=== PATIENT | male | born 1980 | race Caucasian/White ===

== ENCOUNTER 2024-10-06 09:35 | Emergency (ER) | payer OTHER, SELFPAY ==
[2024-10-06 09:48] VITALS: BP 132/58; PULSE 100; RESP 16; TEMP 37.7; O2SAT 99
--- NOTE | 2024-10-06 10:08 | ED.URI ---
HPI - URI/Sore Throat General Chief Complaint: Upper Respiratory Infection Stated Complaint: cough,sore throat Time Seen by Provider: 10/06/24 10:24 Source: patient and RN notes reviewed Mode of arrival: ambulatory Limitations: no limitations History of Present Illness HPI Narrative: 44-year-old male presents with concern for 2 day history of sore throat, chills, sinus congestion, cough. Reports he started having a dry throat 4-5 days ago with the other symptoms did start till Friday. Patient has history of immunocompromise, diabetes. He has been taking Tylenol MD elicited complaint: cough and sore throat Related Data Allergies Allergy/AdvReac Type Severity Reaction Status Date / Time No Known Allergies Allergy Verified 10/06/24 10:32 Review of Systems Review of Systems: CONSTITUTIONAL: Reports malaise, chills, sweats EYES: Denies visual changes, redness, or discharge. ENT: Reports rhinorrhea, congestion, and sore throat. CARDIOVASCULAR: Denies chest pain, palpitations, or edema. RESPIRATORY: Reports cough. Denies dyspnea. GASTROINTESTINAL: Denies abdominal pain, nausea, vomiting, diarrhea SKIN: Denies rash or itching. MUSCULOSKELETAL: Reports myalgia. NEUROLOGIC: Denies headache. All systems reviewed & are unremarkable except as noted in HPI and below PMFSH Comments At time of signature, agree with nursing past medical, surgical, social and family history. There is no relevant family history pertinent to the presenting complaint Exam Narrative: GENERAL: Nontoxic-appearing, well-nourished, and in no acute distress. HEAD: Normocephalic EYES: PERRLA, conjunctivae clear ENT: Nares clear. Mucous membranes moist. TM pearly villar with sharp light reflex bilaterally; no tragal tenderness. Oropharynx not erythematous without lesions. Tonsils not enlarged and without exudate, no drooling, no hoarseness, no trismus, uvula midline. NECK: Supple. No lymphadenopathy CHEST: Clear to auscultation, breath sounds equal. No wheezing, rhonchi, rales, or stridor. No respiratory distress, speaks in full sentences. HEART: Regular rate and rhythm. No murmur heard. SKIN: Warm, dry, no rash. NEURO: Alert and oriented x3. PSYCH: Normal mood and affect Course Course Emergency Course: Patient is aware of diagnosis, understands and agrees to treatment plan. Anticipatory guidance given. Patient agrees to follow-up as directed and is aware of reasons to seek care at the emergency department. Portions of this record may have been created with voice recognition software Level of Care: Express Care Visit Vital Signs Vital signs: Vital Signs Temperature 99.9 F H 10/06/24 09:48 Pulse Rate 100 10/06/24 09:48 Respiratory Rate 16 10/06/24 09:48 Blood Pressure 132/58 L 10/06/24 09:48 Pulse Oximetry 99 10/06/24 09:48 Oxygen Delivery Room Air 10/06/24 09:48 Temperature 99.9 F H 10/06/24 09:48 Pulse Rate 100 10/06/24 09:48 Respiratory Rate 16 10/06/24 09:48 Blood Pressure 132/58 L 10/06/24 09:48 Pulse Oximetry 99 10/06/24 09:48 Oxygen Delivery Room Air 10/06/24 09:48 Reviewed. MDM - URI/Sore Throat MDM Narrative Medical decision making narrative: Differential diagnosis considered: Wright virus, strep pharyngitis, allergic rhinitis, upper respiratory tract infection, sinusitis, rhinosinusitis, nasopharyngitis. viral pharyngitis, otitis media, otitis externa, pneumonia, bronchitis, viral cough syndrome, viral syndrome, and influenza. Exam findings show no acute concerns or changes; patient is non-toxic appearing and is in no distress. Patient is appropriate for outpatient treatment and follow-up. Lab Data Attestation: I reviewed the patient's lab results. Critical Care Time Critical Care Time Critical Care Time: No Discharge Plan Discharge Clinical Impression: Influenza B Patient Disposition: Home, Self-Care Condition: Stable Instructions: Influenza (ED) Additional Instructions: -Take strict precautions to prevent the spread of your virus. Be diligent about covering your cough (even when you are alone) and washing your hands frequently. -You may contagious until you have been symptom and/or fever free for 24 hours without fever reducing medicine -Alternate Ibuprofen and Tylenol for pain and fever relief (per package directions) -Some Cough medicines may make you drowsy, do not take it if you have to make important decisions, drive, or work. -Drink plenty of fluid - drink fluid with electrolytes such as Gatorade or other oral re-hydration solution. Avoid caffeine, which can make dehydration worse. -Get plenty of rest to help your body heal. -Use a cool mist humidifier for chest and nasal congestion. -Eat RAW honey or use cough drops to ease throat discomfort -Do not smoke or expose children to secondhand smoke -Wash your hands frequently. -Please follow-up with your primary care doctor in the next 1-2 days if your symptoms do not improve. -If you have any worsening of symptoms or any other concerns please go to the ED immediately. -Please take medications as prescribed and continue taking your home medications as usual. Patient Language: [place] Prescriptions: New oseltamivir 75 mg capsule 75 mg PO BID 5 Days Qty: 10 0RF codeine-guaifenesin [Virtussin AC] 10-100 mg/5 mL liquid 5 ml PO Q6H PRN (Reason: cough) Qty: 120 0RF Follow-up/Referrals: PHYSICIAN,[employer]LL[employer]EMAN [Primary Care Provider] - Time of Disposition: 10:33
[2024-10-06 10:23] LABS: EDSTREPNEGPOS1 Negative (Negative)
[2024-10-06 10:24] LABS: EDCOVIDSCREEN Negative (Negative); EDINFLUASCREEN Negative (Negative); EDINFLUBSCREEN Positive (Negative)
== END 2024-10-06 10:36 | disposition home or self-care (01) ==
PROVIDERS: Emergency Provider Nurse Practitioner
DX: J10.1 Influenza due to other identified influenza virus with other respiratory manifestations (principal); Z20.822 Contact with and (suspected) exposure to COVID-19; E11.9 Type 2 diabetes mellitus without complications; E03.9 Hypothyroidism, unspecified; L40.50 Arthropathic psoriasis, unspecified
CPT/HCPCS: 87081; 87426; 87804; 87880; 99213; G0463

== ENCOUNTER 2025-01-11 08:35 | Outpatient (CLI) | payer OTHER, SELFPAY ==
--- NOTE | ~2025-01-11 | XR_ITS ---
Left wrist Technique: PA, oblique, lateral, and ulnar deviation views were obtained. Clinical History: Pain, inflammatory arthritis Findings: No acute fracture or dislocation is seen. Osseous alignment is anatomic. Joint spaces are p reserved. Soft tissues are unremarkable. Impression: Unremarkable left wrist radiographs. Reviewed, dictated and finalized at location . Impression: Unremarkable left wrist radiographs.
--- NOTE | ~2025-01-11 | XR_ITS ---
Right wrist Technique: PA, oblique, lateral, and ulnar deviation views were obtained. Clinical History: Pain, inflammatory arthritis Findings: No acute fracture or dislocation is seen. Osseous alignment is anatomic. Joint spaces are p reserved. Soft tissues are unremarkable. Impression: Unremarkable right wrist radiographs. Reviewed, dictated and finalized at location . Impression: Unremarkable right wrist radiographs.
--- NOTE | ~2025-01-11 | XR_ITS ---
Right Hand Technique: PA, oblique, and lateral views were obtained. Clinical History: Pain Findings: No acute fracture or dislocation is seen. Osseous alignment is anatomic. Joint spaces are p reserved. Soft tissues are unremarkable. Impression: Unremarkable right hand. Reviewed, dictated and finalized at location M. Impression: Unremarkable right hand.
--- NOTE | ~2025-01-11 | XR_ITS ---
Left Hand Technique: PA, oblique, and lateral views were obtained. Clinical History: Pain Findings: No acute fracture or dislocation is seen. Osseous alignment is anatomic. Joint spaces are p reserved. Soft tissues are unremarkable. Impression: Unremarkable left hand. Reviewed, dictated and finalized at location M. Impression: Unremarkable left hand.
== END 2025-01-11 08:36 | disposition home or self-care (01) ==
DX: L40.50 Arthropathic psoriasis, unspecified (principal); G56.03 Carpal tunnel syndrome, bilateral upper limbs; M25.531 Pain in right wrist; M25.532 Pain in left wrist
CPT/HCPCS: 73110; 73130

== ENCOUNTER 2025-03-09 08:10 | Emergency (ER) | payer OTHER, SELFPAY ==
[2025-03-09 08:16] VITALS: BP 98/76; PULSE 71; RESP 16; TEMP 36.3; O2SAT 97
--- OUTSIDE RECORDS SUMMARY | 2025-03-09 08:16 | XMS_ITS | Referral Summary ---
Author Organization [facility] Address [address] [place] [address] Care Team Providers Care Electronics Manufacturer Name Role Phone No, Physician Primary Care Provider [phone] Encounters Date Type Department Care Team Description 02/25/2025 10:15 AM CDT Lab [facility] [place] - Lab Collection [address] [place] [address] Thrombocytosis 02/25/2025 10:00 AM CDT Lab [facility] Oncology Lab [address] [facility] Floor 6 [place] [address] 02/25/2025 9:00 AM CDT Office Visit [facility] H[facility] [address] [place] [phone] Paz Medeiros MD Thrombocytosis 02/21/2025 Telephone [facility] [address] [facility] [address] [place] [phone] Johnny Jones RPh 02/17/2025 Telephone [facility] Hematology [address] [facility] Floor 6 [place] [phone] Yasmeen Miranda 01/27/2025 Telephone [facility] Endocrinology Metabolism and Lipid [address] [facility] 5th [place] [address] [place] [phone] Ruben Lopes RN Prior Auth (Please PA for insulin lispro (HumaLOG, ADMELOG) 100 unit/mL vial for injection [[id number]].) 01/27/2025 Telephone [facility] Endocrinology Metabolism and Lipid [address] [facility] 5th [place] [address] [place] [address] Ruben Lopes RN 01/26/2025 10:00 AM CDT Office Visit [facility] Rheumatology [address] [facility] 5th [place] [address] [place] [phone] Vee Bermudez MD Psoriatic arthritis (HCC) (Primary Dx); Encounter for long-term (current) use of high-risk medication; Chronic left shoulder pain; Bilateral carpal tunnel syndrome; Thrombocytosis 01/21/2025 Orders Only [facility] Rheumatology [address] [facility] 2nd [address] [place] [address] Nate Núñez Bilateral carpal tunnel syndrome (Primary Dx) 01/11/2025 Orders Only [facility] RHEUMATOLOGY Scanning, Provider 01/05/2025 Orders Only [facility] Rheumatology [address] [facility] 5th [place] [address] [place] [phone] Vee Bermudez MD Psoriatic arthritis (HCC) (Primary Dx); Bilateral carpal tunnel syndrome; Pain in both hands; Pain in both wrists 12/14/2024 Orders Only [facility] Rheumatology [address] [facility] [address] [place] [address] Ijeoma Mercedes RMA Thrombocytosis (Primary Dx) 12/14/2024 9:20 AM CDT Office Visit [facility] Rheumatology [address] [place] [address] [address] [place] [phone] Vee Bermudez MD Psoriatic arthritis (HCC) (Primary Dx); Encounter for long-term (current) use of high-risk medication; Chronic left shoulder pain; Bilateral carpal tunnel syndrome; Thrombocytosis from Last 3 Months Allergies Active Allergy Reactions Criticality Noted Date Comments Erythromycin Stomach upset,Nausea & Vomiting Low 07/28/2008 Levofloxacin Other (See comments) Low 06/06/2019 TENDONITIS Sulfa (Sulfonamide Antibiotics) Nausea & Vomiting Low 06/15/2013 Medications multivitamin tabletIndications:Vi tamin Deficiency Prevention Take 1 tablet by mouth every morning 009 Active insulin syringe-needle U-100 1 mL 31 gauge x 15/64 syringe Use for insulin injections in case of pump failure, 4 times daily 120 Syringe 3 018 Active CONTOUR NEXT TEST STRIPS strip Check blood sugar 4 times a day. 120 each 3 019 Active subcutaneous insulin pump misc continuous Active blood-glucose meter,continuous (DEXCOM G6 MANAGER LPN) miscIndications:Type 1 diabetes mellitus with complication (HCC) One air and hydronic balancing technician 1 each 019 Active glucagon 3 mg/actuation spray,non-aerosol Administer 3 mg into affected nostril(s) once as needed (hypoglycemia) for up to 1 dose 1 each 3 Active naproxen sodium 220 mg capsule Take 440 mg by mouth as needed (pain) Active halobetasol (ULTRAVATE) 0.05 % ointmentIndications: Post-inflammatory hyperpigmentation Apply topically 2 (two) times a day as needed (affected areas of rash) 50 g [address] (VOLTAREN) 50 mg EC tabletIndications:Ps oriatic arthritis (HCC) Take 1 tablet (50 mg total) by mouth 2 (two) times a day 60 tablet 1 024 Active blood-glucose transmitter (Dexcom G6 Transmitter) deviceIndications:Ty pe 1 diabetes mellitus with complication (HCC) USE EVERY 3 MONTHS DIRECTED 1 each 3 024 Active levothyroxine (SYNTHROID) 200 mcg tabletIndications:Hy pothyroidism due to Tr's thyroiditis Take 1 tablet by mouth once daily 90 tablet 3 024 Active insulin glargine 100 unit/mL vial for injection Inject 15 units once daily when off pump 10 mL 024 2029 Active blood-glucose sensor (Dexcom G7 Sensor) device Will use 3 sensors per month to check blood sugar continuously. 3 each 024 Active Cosentyx Pen, 2 Pens, pen injectorIndications: Psoriatic arthritis (HCC) INJECT 300MG SUBCUTANEOUSLY EVERY 4 WEEKS 2 mL 1 025 Active folic acid (FOLVITE) 1 mg tablet Take 1 tablet (1 mg total) by mouth daily 90 tablet 1 05/07/2 025 Active insulin lispro (HumaLOG, ADMELOG) 100 unit/mL vial for injectionIndications :Type 1 diabetes mellitus with complication (HCC) INJECT 80 UNITS DIRECTED IN PUMP. MAX DAILY DOSE OF 80 UNITS 30 mL 5 Active methotrexate 2.5 mg tabletIndications:Ot her - non-oncology Take 4 tablets (10 mg total) by mouth once a week 48 tablet 1 Active predniSONE (DELTASONE) 5 mg tablet Take 4 tablets (20 mg) by mouth daily for 7 days, THEN 3 tablets (15 mg) daily for 7 days, THEN 2 tablets (10 mg) daily for 7 days, THEN 1 tablet (5 mg) daily for 7 days. 70 tablet 1 025 2024 Active Problems Patient Care Coordination No te Formatting of this note migh t be different from the original. tonsils Problem Noted Date Diagnosed Date Carpal tunnel syndrome on both sides 01/14/2024 MARIBELL (obstructive sleep apnea) 11/05/2023 Insulin pump titration 12/03/2018 Diabetes mellitus type 1 05/19/2018 Assessment & Plan (07/06/2019 6:16 PM CDT): A1C is better today. Assessment & Plan (12/01/2018 6:20 PM CDT): A1C is worse today. Has not been able to keep his CGM on at work. Also was bothered by sensor failure and multiple rechecks. -I don't have much data to titrate his current dose. -recommended to work on diet. -He will see Jolly (CDE) for help with insulin pump and CGM. May benefit from using dexcom G6 which will not need any calibrations. Assessment & Plan (05/19/2018 5:58 PM CDT): Diabetes is improving with treatment. Continue current treatment regimen. Diabetes will be reassessed in 6 months. Dyslipidemia 05/19/2018 Assessment & Plan (07/06/2019 6:18 PM CDT): Consider starting a statin. Assessment & Plan (12/01/2018 5:04 PM CDT): Will repeat lipid panel and consider starting a statin. Assessment & Plan (05/19/2018 5:59 PM CDT): Not yet on statin. Will repeat lipids when he has been taking T4 regularly. Hay fever 06/20/2014 Hypothyroidism 01/19/2011 Assessment & Plan (07/06/2019 6:17 PM CDT): Continue current dose of levothyroxine. Will check TSH. Assessment & Plan (12/01/2018 4:25 PM CDT): Continue current dose of levothyroxine. Will check TSH. Assessment & Plan (05/19/2018 6:00 PM CDT): Ran out of T4 and only restarted last week. Takes all seven pills once weekly. Feels well. Psoriasis with arthropathy 01/19/2011 Immunizations Immunization Administration Dates Next Due Influenza, Trivalent, Preservative Free, Intramu scular 07/21/2013 URX (J&J) SARS-CoV-2 Vaccination 11/27/2020 Pneumococcal Polysaccharide PPV23 01/15/2012 Social History Tobacco Use Types Packs/Day Years Used Date Smoking Tobacco: Former Cigarettes 0.2 3 Smokeless Tobacco: Never Tobacco Cessation:Counseling Given: Not Answered Alcohol Use Standard Drinks/Week Comments Yes 0 (1 standard drink = 0.6 oz pur e alcohol) AUDIT-C Answer Date Recorded Q1: How often do you have a drink containing alc ohol? 2-4 times a month 12/16/2023 Average Number of Drinks Not on file 024 Frequency of Binge Drinking Not on file 11/21 Personal Safety Answer Date Recorded Have you ever been in or are you currently in a harmful physical or emotional relationship or is someone making you feel afraid or unsafe? Denies 11/28/2023 Sex and Gender Information Value Date Recorded Sex Assigned at Not on file Legal Sex Male 8:40 PM CRIBBING SETTER Gender Identity Male 05/19/2018 2:47 PM CDT Sexual Orientation Not on file Last Filed Vital Signs Vital Sign Reading Time Taken Comments Blood Pressure 116/74 02/25/2025 8:52 AM CDT Pulse 76 02/25/2025 8:52 AM CDT Temperature 36.2 C (97.1 F) 02/25/2025 8:52 AM CDT Respiratory Rate 18 02/25/2025 8:52 AM CDT Oxygen Saturation 98% 02/25/2025 8:52 AM CDT Inhaled Oxygen Concentration - - Weight 79.7 kg (175 lb 9.6 oz) 02/25/2025 8:52 A M CDT Height 170.2 cm (5' 7) 02/25/2025 8:52 AM CDT Body Mass Index 27.5 02/25/2025 8:52 AM CDT Plan of Treatment Not on file Procedures Procedure Name Priority Date/Time Associated Diagnosis Comments DIFFERENTIAL AUTO Routine 02/25/2025 10: 11 AM CDT Thrombocytosis CBC WITH AUTO DIFFERENTIAL Routine 02/25/2025 10:11 AM CDT Thrombocytosis EGFR Routine 02/25/2025 10:11 AM CDT Thrombocytosis COMPREHENSIVE METABOLIC PANEL Routine 02/25/2025 10:11 AM CDT Thrombocytosis ERYTHROCYTE SEDIMENTATION RATE Routine 02/25/2025 10:11 AM CDT Thrombocytosis CRP (ACUTE PHASE) Routine 02/25/2025 10: 11 AM CDT Thrombocytosis FERRITIN Routine 02/25/2025 10:11 AM CDT Thrombocytosis IRON PROFILE W/ IBC Routine 02/25/2025 1 0:11 AM CDT Thrombocytosis SCAN - RADIOLOGY/IMAGING 01/11/2025 HEMOGLOBIN A1C Routine 09/11/2024 9:19 AM CRIBBING SETTER Type 1 diabetes mellitus with complication (HCC) Fatigue, unspecified type Dyslipidemia 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 LIPID PANEL Routine 09/11/2024 9:19 AM CRIBBING SETTER Type 1 diabetes mellitus with complication (HCC) Fatigue, unspecified type Dyslipidemia 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 TSH Routine 09/11/2024 9:19 AM CRIBBING SETTER Type 1 diabetes mellitus with complication (HCC) Fatigue, unspecified type Dyslipidemia 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 ALBUMIN CREATININE RATIO, URINE Routine 01/24/2022 6:10 AM CDT 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 Type 1 diabetes mellitus without complication (HCC) SERUM HEPATITIS PANEL Routine 10/21/2016 2:41 PM CRIBBING SETTER from Last 3 Months or Most Recently Relevant to Health Maintenance Results * (ABNORMAL) Differential, auto (02/25/2025 10:11 AM CDT) Neutrophil abs 4.00 1.50 - 6.50 K/cumm Comment:Testing performed by : [facility], [address] [place], [place] [id number] Lymphocyte abs 2.41 0.80 - 3.30 K/cumm CERNER BJ Comment:Testing performed by : [facility], [address] [place], [place] [phone] Monocyte abs 0.81(H) 0.20 - 0.80 K/cumm CERNER [facility] Comment:Testing performed by : [facility], [address] [place], [place] [phone] Eosinophil abs 0.27 0.00 - 0.50 K/cumm CERNER BJ Comment:Testing performed by : [facility], [address] [place], [place] [phone] Basophil abs 0.09 0.00 - 0.10 K/cumm CERNER BJ Comment:Testing performed by : [facility], [address] [place], [place] [phone] Neutrophil pct 52.8 % CERNER [facility] Comment: Interpretive Data Percent cell count reference ranges are not reported, since discordance with absolute values may lead to misinterpretation of CBC data. Current Interpretive Data was last revised on 2017. Testing performed by: [facility], [address] [place], [place] [id number] Lymphocyte pct 31.8 % DIO FARIA Comment: Interpretive Data Percent cell count reference ranges are not reported, since discordance with absolute values may lead to misinterpretation of CBC data. Current Interpretive Data was last revised on 2017. Testing performed by: [facility], [address] [place] [phone] Monocyte pct 10.6 % DIO FARIA Comment: Interpretive Data Percent cell count reference ranges are not reported, since discordance with absolute values may lead to misinterpretation of CBC data. Current Interpretive Data was last revised on 2017. Testing performed by: [facility], [address] [place] [phone] Eosinophil pct 3.6 % DIO FARIA Comment: Interpretive Data Percent cell count reference ranges are not reported, since discordance with absolute values may lead to misinterpretation of CBC data. Current Interpretive Data was last revised on 2017. Testing performed by: [facility], [address] [place] [phone] Basophil pct 1.2 % DIO FARIA Comment: Interpretive Data Percent cell count reference ranges are not reported, since discordance with absolute values may lead to misinterpretation of CBC data. Current Interpretive Data was last revised on 2017. Testing performed by: [facility], [address] [place] [phone] Blood 02/25/2025 10:1 1 AM CDT 02/25/2025 10:27 AM CDT us Paz Medeiros MD LAB BLOOD ORDERABLES Love l Result DIO FARIA [facility] [place] [address] * (ABNORMAL) CBC with auto differential (02/25/2025 10:11 AM CDT) WBC 7.58 3.80 - 9.90 K/cumm Comment:Testing performed by : [facility], [address] [place] [address] Hgb 14.8 13.0 - 17.5 g/dL CERNER BJ Comment:Testing performed by : [facility], [address] [place] [address] Hct 44.4 38.9 - 50.3 % CERNER BJ Comment:Testing performed by : [facility], [address] [place] [address] Plt 493(H) 150 - 400 K/cumm CERNER BJ Comment:Testing performed by : [facility], [address] [place] [address] MPV 7.0 6.8 - 10.4 fL CERNER BJ Comment:Testing performed by : [facility], [address] [place], [place] [phone] RBC 4.79 4.30 - 5.80 M/cumm CERNER BJ Comment:Testing performed by : [facility], [address] [place] [address] MCV 92.7 81.3 - 96.4 fL CERNER BJ Comment:Testing performed by : [facility], [address] [place] [address] MCH 30.9 27.1 - 33.3 pg CERNER BJ Comment:Testing performed by : [facility], [address] [place] [address] MCHC 33.3 32.3 - 35.7 g/dL CERNER BJ Comment:Testing performed by : [facility], [address] [place] [address] RDW CV 13.8 11.1 - 14.9 % CERNER BJ Comment:Testing performed by : [facility], [address] [place] [address] NRBC abs 0.00 0.00 - 0.01 K/cumm CERNER BJ Comment:Testing performed by : [facility], [address] [place] [address] Blood 02/25/2025 10:1 1 AM CDT 02/25/2025 10:27 AM CDT Paz Medeiros MD LAB BLOOD ORDERABLES Love l Result Performing Organization Address City/[facility]/ZIP Co de Phone Number DIO [facility] [place] [address] * eGFR (02/25/2025 10:11 AM CDT) eGFR 67 >=60 mL/min/1. 73 m2 Comment: Interpretive Data Reference Interval Normal >/= 90 mL/min/1.73m2 Mildly decreased* 60 - 89 mL/min/1.73m2 Mildly to moderately decreased 45 - 59 mL/min/1.73m2 Moderately to severely decreased 30 - 44 mL/min/1.73m2 Severely decreased 15 - 29 mL/min/1.73m2 Kidney Failure < 15 mL/min/1.73m2 *Relative to young adult level Estimated glomerular filtration rate is determined by the 2020 CKD-EPI equation recommended by the National Kidney Foundation (A Unifying Approach to GFR Estimation: Recommendations of the NKF-ASK Task Force on Reassessing the Inclusion of Race in Diagnosing Kidney Disease, JASN 2020). The CKD-EPI equation should not be used for patients with unstable renal function and has not been validated in children and those over 70. Current interpretive data was last reviewed 2021. Blood 02/25/2025 10:1 1 AM CDT 02/25/2025 10:32 AM CDT Paz Medeiros MD LAB BLOOD ORDERABLES Love l Result DIO [facility] [place] [address] * (ABNORMAL) Iron profile w/ IBC (02/25/2025 10:11 AM CDT) Iron 80 50 - 150 mcg/dL TIBC 214(L) 250 - 400 mcg/dL [facility] Transferrin saturation 37 20 - 50 % [facility] Blood 02/25/2025 10:1 1 AM CDT 02/25/2025 10:32 AM CDT us Paz Medeiros MD LAB BLOOD ORDERABLES Love l Result Performing Organization Address City/[facility] Co de Phone Number [facility] [place] [address] * Erythrocyte sedimentation rate (02/25/2025 10:11 AM CDT) Erythrocyte sedimentation rate 7 1 - 15 mm/hr Blood 02/25/2025 10:1 1 AM CDT 02/25/2025 12:10 PM CDT us Paz Medeiros MD LAB BLOOD ORDERABLES Love l Result Performing Organization Address [facility] Co de Phone Number [facility] [place] [address] * CRP (acute phase) (02/25/2025 10:11 AM CDT) CRP 1.4 <=10.0 mg/L Blood 02/25/2025 10:1 1 AM CDT 02/25/2025 11:48 AM CDT us Paz Medeiros MD LAB BLOOD ORDERABLES Love l Result Performing Organization Address City/[facility] Co de Phone Number [facility] [place] [address] * Ferritin (02/25/2025 10:11 AM CDT) Ferritin 298 30 - 400 ng/mL Blood 02/25/2025 10:1 1 AM CDT 02/25/2025 10:32 AM CDT us Paz Medeiros MD LAB BLOOD ORDERABLES Love martinez Result [facility] [place] [address] * (ABNORMAL) Comprehensive metabolic panel (02/25/2025 10:11 AM CDT) Sodium 137 135 - 145 mmol/L Potassium, pl 4.2 3.3 - 4.9 mmol/L [facility] Chloride 100 97 - 110 mmol/L [facility] CO2 26 22 - 32 mmol/L [facility] Anion gap 11 2 - 15 mmol/L [facility] BUN 16 6 - 25 mg/dL [facility] Creatinine 1.33(H) 0.80 - 1.30 mg/dL [facility] Glucose 147 70 - 199 mg/dL [facility] Comment: Interpretive Data Fasting glucose >/= 126 mg/dl is diagnostic for diabetes. Fasting is defined as no caloric intake for at least 8 hours. Fasting glucose between 100 mg/dl to 125 mg/dl is diagnostic of prediabetes. In a patient with classic symptoms of hyperglycemia or hyperglycemic crisis, a random glucose >/= 200 mg/dl is diagnostic for diabetes. In the absence of unequivocal hyperglycemia, results should be confirmed by repeat testing. The classification and Diagnosis of Diabetes Diabetes Care 2021; 46: S19-S40. Current interpretive data was last revised 2022. Calcium 9.5 8.5 - 10.3 mg/dL [facility] Bilirubin, total 0.4 0.1 - 1.2 mg/dL [facility] Protein, pl 7.4 6.5 - 8.5 g/dL [facility] Albumin 4.5 3.5 - 5.0 g/dL [facility] Alk phos 50 40 - 130 Units/L [facility] ALT 19 7 - 55 Units/L [facility] AST 21 10 - 50 Units/L [facility] Blood 02/25/2025 10:1 1 AM CDT 02/25/2025 10:32 AM CDT Paz Medeiros MD LAB BLOOD ORDERABLES Love l Result DIO PEREZ [facility] [place] [address] * SCAN - RADIOLOGY/IMAGING (01/11/2025) Anatomical Region Laterality Modality Other Provider Scanning Final Result * (ABNORMAL) TSH (09/11/2024 9:19 AM CRIBBING SETTER) TSH 29.44(H) 0.40 - 4.50 mIU/L [facility] Blood 09/11/2024 9:19 AM CRIBBING SETTER 09/11/2024 9:20 AM CRIBBING SETTER Narrative [facility] - 09/12/2024 10:42 AM CRIBBING SETTER COLLECTION KIT GIVEN TO PATIENT. PATIENT ADVISED TO RETURN. Mor Alcantar MD LAB BLOOD ORDERABLES Fin al Result Performing Organization Address City/[facility]/ZIP Co de Phone Number [facility] [address] [place] [address] * (ABNORMAL) Hemoglobin A1c (09/11/2024 9:19 AM CRIBBING SETTER) Hgb A1C 7.5(H) <5.7 % of total Hgb [facility] Comment: For someone without known diabetes, a hemoglobin A1c value of 6.5% or greater indicates that they may have diabetes and this should be confirmed with a follow-up test. For someone with known diabetes, a value <7% indicates that their diabetes is well controlled and a value greater than or equal to 7% indicates suboptimal control. A1c targets should be individualized based on duration of diabetes, age, comorbid conditions, and other considerations. Currently, no consensus exists regarding use of hemoglobin A1c for diagnosis of diabetes for children. Blood 09/11/2024 9:19 AM CRIBBING SETTER 09/11/2024 9:20 AM CRIBBING SETTER Narrative [facility] - 09/12/2024 10:42 AM CRIBBING SETTER COLLECTION KIT GIVEN TO PATIENT. PATIENT ADVISED TO RETURN. Mor Alcantar MD LAB BLOOD ORDERABLES Fin al Result [facility] [employer] [facility] [address] [place] [address] * (ABNORMAL) Lipid panel (09/11/2024 9:19 AM CRIBBING SETTER) Cholesterol 192 <200 mg/dL [facility] HDL 74 > OR = 40 mg/dL [facility] Triglycerides 56 <150 mg/dL [facility] LDL 104(H) mg/dL (calc) [facility] Comment: Reference range: <100 Desirable range <100 mg/dL for primary prevention; <70 mg/dL for patients with CHD or diabetic patients with > or = 2 CHD risk factors. LDL-C is now calculated using the Jaqueline calculation, which is a validated novel method providing better accuracy than the Friedewald equation in the estimation of LDL-C. Negro SS et al. ROSEMARY. 2013;310(19): 7198-5456 (http://education.Aloompa/faq/NOQ976) Chol/HDL ratio 2.6 <5.0 (calc) [facility] Non-HDL, (LDL+VLDL) 118 <130 mg/dL (calc) [facility] Comment: For patients with diabetes plus 1 major ASCVD risk factor, treating to a non-HDL-C goal of <100 mg/dL (LDL-C of <70 mg/dL) is considered a therapeutic option. Blood 09/11/2024 9:19 AM CRIBBING SETTER 09/11/2024 9:20 AM CRIBBING SETTER Narrative [facility] - 09/12/2024 10:42 AM CRIBBING SETTER COLLECTION KIT GIVEN TO PATIENT. PATIENT ADVISED TO RETURN. Mor Alcantar MD LAB BLOOD ORDERABLES Fin al Result [facility] [address] [place] [address] * Albumin Creatinine Ratio, Urine (01/24/2022 6:10 AM CDT) Creatinine, ur 124 20 - 320 mg/dL [facility] Microalbumin, ur 0.3 See Note: mg/dL [facility] Comment: Reference Range: Reference Range Not established Microalbumin/creat ratio 2 <30 mcg/mg creat [facility] Comment: The ADA defines abnormalities in albumin excretion as follows: Albuminuria Category Result (mcg/mg creatinine) Normal to Mildly increased <30 Moderately increased 30-299 Severely increased > OR = 300 The ADA recommends that at least two of three specimens collected within a 3-6 month period be abnormal before considering a patient to be within a diagnostic category. Urine 01/24/2022 6:10 AM CDT 01/24/2022 6:10 AM CDT Narrative [facility] - 01/25/2022 2:21 PM CDT FASTING:YES FASTING: YES us Mor Alcantar MD LAB URINE ORDERABLES Fin al Result [facility] [address] [place] [address] * Serum Hepatitis panel (10/21/2016 2:41 PM CRIBBING SETTER) Pathologist [facility] HBV core ab, IgM Nonreactive C DR HISTORICAL RESULTS Comment: Interpretive Data If test is reported as GRAYZONE, new sample should be drawn for testing. Current interpretive data was last revised on 2016. HCV ab Nonreactive CDR HISTORICAL RESULTS Comment: Interpretive Data Positive results should be confirmed by a molecular method. If positive, a second separately collected sample should be submitted for Hepatitis C Virus (HCV) RNA Detection and Quantitation by Real-Time Reverse Core Composer Machine Tender-PCR (RT-PCR). Current interpretive data was last revised on 2016. HBV surface ag Nonreactive CDR HISTORICAL RESULTS HAV ab, IgM Nonreactive CDR HISTORICAL RESULTS Comment: Interpretive Data If test is reported as GRAYZONE, new sample should be drawn in two weeks for testing. Current interpretive data was last revised on 2016. Serum 10/21/2016 2:41 PM CRIBBING SETTER Tom Saavedra MD LAB BLOOD ORDERABLES Love martinez Result CDR HISTORICAL RESULTS from Last 3 Months or Most Recently Relevant to Health Maintenance Insurance [facility] CHOICE PLUS [facility] CHOICE PLUS Member Subscriber Plan / Payer (Ef fective 2025-Present) Name:Tutu Lewis Relation to Subscriber:Self Name:Tutu Lewis Payer ID:[id number] (NAIC) Type:[facility] HMO/PPO Address: [place] [phone] Care Teams Electronics Manufacturer Relationship Specialty Start Date End Date No, Physician PCP - General 06/07/24
--- OUTSIDE RECORDS SUMMARY | 2025-03-09 08:16 | XMS_ITS | Clinical Summary ---
Author Organization [facility] Address [address] [place] [address] Care Team Providers Care Clinical Sales Consultant Name Role Phone No, Physician Primary Care Provider [phone] Allergies Active Allergy Reactions Criticality Noted Date [...] misc continuous Active blood-glucose meter,continuous (DEXCOM G6 RN CVICU) miscIndications:Type 1 diabetes mellitus with complication (HCC) One sql tech 1 each 019 Active glucagon 3 mg/actuation spray,non-aerosol Administer 3 mg into affected nostril(s) once as needed (hypoglycemia) for up to 1 dose 1 each 3 019 Active naproxen sodium 220 mg capsule Take [...] once daily when off pump 10 mL 11 024 2029 Active blood-glucose sensor (Dexcom G7 Sensor) device Will use 3 sensors per month to check blood sugar continuously. 3 each 11 024 Active Cosentyx Pen, 2 Pens, pen injectorIndications: Psoriatic arthritis (HCC) INJECT 300MG SUBCUTANEOUSLY EVERY 4 WEEKS 2 mL 1 025 Active folic acid (FOLVITE) 1 mg tablet Take 1 tablet (1 mg total) by mouth daily 90 tablet 1 025 Active insulin lispro (HumaLOG, ADMELOG) 100 unit/mL vial for injectionIndications :Type 1 diabetes mellitus with complication (HCC) INJECT 80 UNITS DIRECTED IN PUMP. MAX DAILY DOSE OF 80 UNITS 30 mL 5 025 Active methotrexate 2.5 mg tabletIndications:Ot her - non-oncology Take 4 tablets (10 mg total) by mouth once a week 48 tablet 1 025 Active predniSONE (DELTASONE) 5 mg tablet Take [...] weekly. Feels well. Psoriasis with arthropathy 01/19/2011 Encounters Date Type Department Care Team Description 02/25/2025 10:15 AM CDT Lab [facility] - Lab Collection [address] [facility] Floor 6 [place] [address] Thrombocytosis 02/25/2025 10:00 AM CDT Lab [facility] Oncology Lab [address] [facility] Floor 6 [place] [address] 02/25/2025 9:00 AM CDT Office Visit [facility] Hematology [facility] Floor 6 [place] [phone] Paz Medeiros MD Thrombocytosis 02/21/2025 Telephone [facility] [address] [facility] [address] [place] [phone] Johnny Jones RPh 02/17/2025 Telephone [facility] Hematology [facility] Floor 6 [place] [phone] Yasmeen Miranda 01/27/2025 Telephone [facility] Endocrinology Metabolism and Lipid [address] [place] [address] [place] [address] Ruben Lopes RN Prior Auth (Please PA for insulin lispro (HumaLOG, ADMELOG) 100 unit/mL vial for injection [[id number]].) 01/27/2025 Telephone [facility] Endocrinology Metabolism and Lipid [address] [place] [address] [place] [address] Ruben Lopes RN 01/26/2025 10:00 AM CDT Office Visit [facility] Rheumatology [address] [place] [address] [place] [address] Vee Bermudez MD Psoriatic arthritis (HCC) (Primary Dx); Encounter for long-term (current) use of high-risk medication; Chronic left shoulder pain; Bilateral carpal tunnel syndrome; Thrombocytosis 01/21/2025 Orders Only [facility] Rheumatology [address] [facility] 2nd Floor [address] [place] [address] Nate Núñez Bilateral carpal tunnel syndrome (Primary Dx) 01/11/2025 Orders Only [facility] RHEUMATOLOGY Scanning, Provider 01/05/2025 Orders Only [facility] Rheumatology [address] [facility] 5th [place] [address] [place] [phone] Vee Bermudez MD Psoriatic arthritis (HCC) (Primary Dx); Bilateral carpal tunnel syndrome; Pain in both hands; Pain in both wrists 12/14/2024 9:20 AM CDT Office Visit [facility] Rheumatology [address] [place] [address] Office [address] [place] [address] Vee Bermudez MD Psoriatic arthritis (HCC) (Primary Dx); Encounter for long-term (current) use of high-risk medication; Chronic left shoulder pain; Bilateral carpal tunnel syndrome; Thrombocytosis 12/14/2024 Orders Only [facility] Rheumatology [address] [place] [address] [address] [place] [address] Ijeoma Mercedes RMA Thrombocytosis (Primary Dx) from Last 3 Months Immunizations Immunization Administration Dates Next Due Influenza, Trivalent, Preservative Free, Intramu scular 07/21/2013 Hop Skip Connect (J&J) SARS-CoV-2 Vaccination 11/27/2020 Pneumococcal Polysaccharide PPV23 01/15/2012 Surgical History Surgery Date Site/Laterality Comments BIOPSY 09/22/1997 - 09/21/1998 on toe FLUORO GUIDED INJECTION SHOULDER LEFT 06/29/2024 Lef t FLUORO GUIDED ASPIRATION OR INJECTION INTERMEDIATE JOINT LEFT 06/29/2024 Left FLUORO GUIDED ASPIRATION OR INJECTION INTERMEDIATE JOINT LEFT 10/25/2024 Left FLUORO GUIDED INJECTION SHOULDER LEFT 10/25/2024 Lef t Medical History Medical History Date Comments Personal history of other en docrine, nutritional and metabolic disease History of hypothyro idism - (Added by TW Conv) Personal history of other en docrine, nutritional and metabolic disease History of type 1 di abetes mellitus - (Added by TW Conv) Rash and other nonspecific s kin eruption Rash - (Added by TW Conv) Motion sickness mild per patient GERD (gastroesophageal reflu x disease) Arthritis Diabetes mellitus (HCC) 09/1984 Sleep apnea Thyroid disease Autoimmune disease Family History Medical History Relation Name Comments Anesthesia problems Neg Hx Social History Tobacco Use Types Packs/Day Years [...] on file Legal Sex Male 8:40 PM CLINICAL PHARMACIST Gender Identity Male 05/19/2018 2:47 PM CDT Sexual Orientation Not on file Obstetrics History Last Filed Vital Signs Vital Sign Reading [...] 02/25/2025 8:52 AM CDT Plan of Treatment Health Maintenance Due Date Last Done Comments Colon Cancer Screening-Colonoscopy 1979 Depression Screening 1979 Foot Exam 1979 Dilated Eye Exam 1989 DTaP/Tdap/Td Vaccine (1 - Tdap) 1990 Hepatitis B Screening 1997 Regular Well Visit/Exam 18-64 1997 Zoster Vaccine (1 of 2) 1998 Pneumococcal vaccine <65 (2 of 2 - PCV) 01/14/2013 01/15/2012 Covid-19 Vaccine (2 - Chevy risk series) 12/25/2020 11/27/2020 Albumin Creatinine Ratio, Urine 01/24/2023 01/24/2022, 12/01/2018 Hemoglobin A1C 03/12/2025 09/11/2024, 05/0 01/2022, 07/06/2019, Additional history exists Influenza Vaccine (Season Ended) 2025 07/21/2013 Lipid Panel 09/11/2025 09/11/2024, 05/0 01/2022, 12/01/2018 TSH Level 09/11/2025 09/11/2024, 05/0 01/2022, 07/28/2019, Additional history exists eGFR 02/25/2026 02/25/2025, 08/23, 04/08/2024, Additional history exists Hepatitis C Screening Completed 10/21/2016 HPV Vaccines Aged Out No longer eligi ble based on patient's age to complete this topic Procedures Procedure Name Priority Date/Time Associated Diagnosis [...] 01/11/2025 HEMOGLOBIN A1C Routine 09/11/2024 9:19 AM CLINICAL PHARMACIST Type 1 diabetes mellitus with complication (HCC) Fatigue, unspecified type Dyslipidemia 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 LIPID PANEL Routine 09/11/2024 9:19 AM CLINICAL PHARMACIST Type 1 diabetes mellitus with complication (HCC) Fatigue, unspecified type Dyslipidemia 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 TSH Routine 09/11/2024 9:19 AM CLINICAL PHARMACIST Type 1 diabetes mellitus with complication (HCC) Fatigue, unspecified type Dyslipidemia 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 ALBUMIN CREATININE RATIO, URINE Routine 01/24/2022 6:10 AM CDT 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 Type 1 diabetes mellitus without complication (HCC) SERUM HEPATITIS PANEL Routine 10/21/2016 2:41 PM CLINICAL PHARMACIST from Last 3 Months or Most Recently Relevant to Health Maintenance Results * (ABNORMAL) Differential, auto (02/25/2025 10:11 AM CDT) Neutrophil abs 4.00 1.50 - 6.50 K/cumm Comment:Testing performed by : [facility], [address] [place] [address] Lymphocyte abs 2.41 0.80 - 3.30 K/cumm CERNER BJ Comment:Testing performed by : [facility], [address] [place] [phone] Monocyte abs 0.81(H) 0.20 - 0.80 K/cumm CERNER BJ Comment:Testing performed by : [facility], [address] [place] [address] Eosinophil abs 0.27 0.00 - 0.50 K/cumm CERNER BJ Comment:Testing performed by : [facility], [address] [place] [phone] Basophil abs 0.09 0.00 - 0.10 K/cumm CERNER BJ Comment:Testing performed by : [facility], [address] [place] [address] Neutrophil pct 52.8 % CERNER BJ Comment: Interpretive Data Percent cell count reference ranges are not reported, since discordance with absolute values may lead to misinterpretation of CBC data. Current Interpretive Data was last revised on 2017. Testing performed by: [facility], [address] [place] [phone] Lymphocyte pct 31.8 % CEREDGAR FARIA Comment: Interpretive Data Percent cell count reference ranges are not reported, since discordance with absolute values may lead to misinterpretation of CBC data. Current Interpretive Data was last revised on 2017. Testing performed by: [facility], [address] [place] [phone] Monocyte pct 10.6 % CEREDGAR FARIA Comment: Interpretive Data Percent cell count reference ranges are not reported, since discordance with absolute values may lead to misinterpretation of CBC data. Current Interpretive Data was last revised on 2017. Testing performed by: [facility], [address] [place] [phone] Eosinophil pct 3.6 % CEREDGAR FARIA Comment: Interpretive Data Percent cell count reference ranges are not reported, since discordance with absolute values may lead to misinterpretation of CBC data. Current Interpretive Data was last revised on 2017. Testing performed by: [facility], [address] [place] [phone] Basophil pct 1.2 % CEREDGAR FARIA Comment: Interpretive Data Percent cell count reference ranges are not reported, since discordance with absolute values may lead to misinterpretation of CBC data. Current Interpretive Data was last revised on 2017. Testing performed by: [facility], [address] [place] [phone] Blood 02/25/2025 10:1 1 AM CDT 02/25/2025 10:27 AM CDT us Paz Medeiros MD LAB BLOOD ORDERABLES Love l Result DIO FARIA [facility] Department [place] [address] * (ABNORMAL) CBC with auto differential (02/25/2025 10:11 AM CDT) WBC 7.58 3.80 - 9.90 K/cumm Comment:Testing performed by : [facility], [address] [place] [address] Hgb 14.8 13.0 - 17.5 g/dL CERNER BJ Comment:Testing performed by : [facility], [address] [place], [place] [phone] Hct 44.4 38.9 - 50.3 % CERNER BJ Comment:Testing performed by : [facility], [address] [place] [address] Plt 493(H) 150 - 400 K/cumm CERNER BJ Comment:Testing performed by : [facility], [address] [place], [place] [phone] MPV 7.0 6.8 - 10.4 fL CERNER BJ Comment:Testing performed by : [facility], [address] [place], [place] [phone] RBC 4.79 4.30 - 5.80 M/cumm CERNER BJ Comment:Testing performed by : [facility], [address] [place], [place] [phone] MCV 92.7 81.3 - 96.4 fL CERNER BJ Comment:Testing performed by : [facility], [address] [place], [place] [phone] MCH 30.9 27.1 - 33.3 pg CERNER BJ Comment:Testing performed by : [facility], [address] [place] [address] MCHC 33.3 32.3 - 35.7 g/dL CERNER BJ Comment:Testing performed by : [facility], [address] [place] [address] RDW CV 13.8 11.1 - 14.9 % CERNER BJ Comment:Testing performed by : [facility], [address] [place] [address] NRBC abs 0.00 0.00 - 0.01 K/cumm CERNER BJ Comment:Testing performed by : [facility], [address] [place] [address] Blood 02/25/2025 10:1 1 AM CDT 02/25/2025 10:27 AM CDT Paz Medeiros MD LAB BLOOD ORDERABLES Love l Result Performing Organization Address [facility]/ZIP Co de Phone Number DIO [facility] [place] [address] * eGFR (02/25/2025 10:11 AM CDT) eGFR [...] Medical Center/ZIP Co de Phone Number DIO [facility] Department [place] [address] * (ABNORMAL) Iron profile w/ IBC (02/25/2025 10:11 AM CDT) Iron 80 50 - 150 mcg/dL TIBC 214(L) 250 - 400 mcg/dL [facility] Transferrin saturation 37 20 - 50 % [facility] Blood 02/25/2025 10:1 1 AM CDT 02/25/2025 10:32 AM CDT Paz Medeiros MD LAB BLOOD ORDERABLES Love l Result Performing Organization Address City/[facility]/ZIP Co de Phone Number [facility] [place] [address] * Erythrocyte sedimentation rate (02/25/2025 10:11 AM CDT) Erythrocyte sedimentation rate 7 1 - 15 mm/hr Blood 02/25/2025 10:1 1 AM CDT 02/25/2025 12:10 PM CDT Paz Medeiros MD LAB BLOOD ORDERABLES Love l Result Performing Organization Address City/[facility] Co de Phone Number [facility] [place] [address] * CRP (acute phase) (02/25/2025 10:11 AM CDT) CRP 1.4 <=10.0 mg/L Blood 02/25/2025 10:1 1 AM CDT 02/25/2025 11:48 AM CDT Paz Medeiros MD LAB BLOOD ORDERABLES Love l Result Performing Organization Address City/State/[facility] Co de Phone Number [facility] [place] [address] * Ferritin (02/25/2025 10:11 AM CDT) Ferritin 298 30 - 400 ng/mL Blood 02/25/2025 10:1 1 AM CDT 02/25/2025 10:32 AM CDT us Paz Medeiros MD LAB BLOOD ORDERABLES Love martinez Result [facility] Department [place] [address] * (ABNORMAL) Comprehensive metabolic panel (02/25/2025 10:11 AM CDT) Sodium 137 135 - 145 mmol/L Potassium, pl 4.2 3.3 - 4.9 mmol/L CERNER [facility] Chloride 100 97 - 110 mmol/L [facility] CO2 26 22 - 32 mmol/L [facility] Anion gap 11 2 - 15 mmol/L [facility] BUN 16 6 - 25 mg/dL [facility] Creatinine 1.33(H) 0.80 - 1.30 mg/dL [facility] Glucose 147 70 - 199 mg/dL [facility] Comment: Interpretive Data Fasting glucose >/= 126 [...] classification and Diagnosis of Diabetes Diabetes Care 202; 46: S19-S40. Current interpretive data was last revised 2022. Calcium 9.5 8.5 - 10.3 mg/dL [facility] Bilirubin, total 0.4 0.1 - 1.2 mg/dL [facility] Protein, pl 7.4 6.5 - 8.5 g/dL [facility]ERNER [facility] Albumin 4.5 3.5 - 5.0 g/dL [facility] Alk phos 50 40 - 130 Units/L CERNER [facility] ALT 19 7 - 55 Units/L [facility] AST 21 10 - 50 Units/L [facility] Blood 02/25/2025 10:1 1 AM CDT 02/25/2025 10:32 AM CDT us Paz Medeiros MD LAB BLOOD ORDERABLES Love l Result DIO PEREZ [facility] Department [place] [address] * SCAN - RADIOLOGY/IMAGING (01/11/2025) Anatomical Region Laterality Modality Other us Provider Scanning Final Result * (ABNORMAL) TSH (09/11/2024 9:19 AM CLINICAL PHARMACIST) TSH 29.44(H) 0.40 - 4.50 mIU/L [facility] Blood 09/11/2024 9:19 AM CLINICAL PHARMACIST 09/11/2024 9:20 AM CLINICAL PHARMACIST Narrative [facility] - 09/12/2024 10:42 AM CLINICAL PHARMACIST COLLECTION KIT GIVEN TO PATIENT. PATIENT ADVISED TO RETURN. us Mor Alcantar MD LAB BLOOD ORDERABLES Fin al Result Performing Organization Address City/[facility]/ZIP Co de Phone Number [facility] [address] [place] [address] * (ABNORMAL) Hemoglobin A1c (09/11/2024 9:19 AM CLINICAL PHARMACIST) Hgb A1C 7.5(H) <5.7 % of total [...] diabetes for children. Blood 09/11/2024 9:19 AM CLINICAL PHARMACIST 09/11/2024 9:20 AM CLINICAL PHARMACIST Narrative [facility] - 09/12/2024 10:42 AM CLINICAL PHARMACIST COLLECTION KIT GIVEN TO PATIENT. PATIENT ADVISED TO RETURN. Mor Alcantar MD LAB BLOOD ORDERABLES Fin al Result [facility] [address] [place] [address] * (ABNORMAL) Lipid panel (09/11/2024 9:19 AM CLINICAL PHARMACIST) Cholesterol 192 <200 mg/dL [facility] [...] equation in the estimation of LDL-C. Negro AGUDELO et al. ROSEMARY. 2013;310(19): 4965-8181 (http://education.Synker/faq/KIH693) Chol/HDL ratio 2.6 <5.0 (calc) [facility] Non-HDL, (LDL+VLDL) 118 <130 mg/dL (calc) [facility] Comment: For patients with diabetes plus 1 major ASCVD risk factor, treating to a non-HDL-C goal of <100 mg/dL (LDL-C of <70 mg/dL) is considered a therapeutic option. Blood 09/11/2024 9:19 AM CLINICAL PHARMACIST 09/11/2024 9:20 AM CLINICAL PHARMACIST Narrative [facility] - 09/12/2024 10:42 AM CLINICAL PHARMACIST COLLECTION KIT GIVEN TO PATIENT. PATIENT ADVISED TO RETURN. Mor Alcantar MD LAB BLOOD ORDERABLES Fin al Result [facility] [address] [phone] * Albumin Creatinine Ratio, Urine (01/24/2022 6:10 [...] 01/25/2022 2:21 PM CDT FASTING:YES FASTING: YES Mor Alcantar MD LAB URINE ORDERABLES Fin al Result [facility] [address] [place] [address] * Serum Hepatitis panel (10/21/2016 2:41 PM CLINICAL PHARMACIST) Pathologist [facility] HBV core ab, IgM [...] RNA Detection and Quantitation by Real-Time Reverse Special Education Resource Room Teacher-PCR (RT-PCR). Current interpretive data was last revised on 2016. HBV surface ag Nonreactive CDR HISTORICAL RESULTS HAV ab, IgM Nonreactive CDR HISTORICAL RESULTS Comment: Interpretive Data If test is reported as GRAYZONE, new sample should be drawn in two weeks for testing. Current interpretive data was last revised on 2016. Serum 10/21/2016 2:41 PM CLINICAL PHARMACIST Tom Saavedra MD LAB BLOOD ORDERABLES Love martinez Result CDR HISTORICAL RESULTS from Last 3 Months or Most Recently Relevant to Health Maintenance Insurance [facility] CHOICE PLUS [facility] CHOICE PLUS Care Teams Clinical Sales Consultant Relationship Specialty Start Date End Date No, Physician PCP - General 06/07/24
--- OUTSIDE RECORDS SUMMARY | 2025-03-09 08:16 | XMS_ITS | Encounter Summary ---
Author Organization [facility] Address [address] [place] [address] Phone Care Team Providers Care Front Desk Attendant Name Role Phone No, Physician Primary Care Provider [phone] Encounter Details Date Type Department Care Team (Late st Contact Info) Description 01/11/2025 Orders Only [facility] Scanning, Provider Social History Tobacco Use Types Packs/Day Years Used Date Smoking Tobacco: Former Cigarettes 0.2 3 Smokeless Tobacco: Never Alcohol Use Standard Drinks/Week Comments Yes 0 [...] on file 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 Gender Identity Male 05/19/2018 2:47 PM CDT Sexual Orientation Not on file documented as of this encounter Plan of Treatment Not on file documented as of this encounter Procedures Procedure Name Priority Date/Time Associated Diagnosis Comments SCAN - RADIOLOGY/IMAGING 01/11/2025 documented in this encounter Results * SCAN - RADIOLOGY/IMAGING (01/11/2025) Anatomical Region Laterality Modality Other us Provider Scanning Final Result documented in this encounter Visit Diagnoses Not on filedocumented in this encounter Care Teams Front Desk Attendant Relationship Specialty Start Date End Date No, Physician PCP - General 06/07/24 documented as of this encounter
--- NOTE | 2025-03-09 08:33 | ED.SKABFB ---
HPI - Skin/Abscess/Foreign Bdy General Chief complaint: Skin/Abscess/Foreign Body Stated complaint: Insect Bite/Left Arm Time Seen by Provider: 03/09/25 08:28 Source: patient and RN notes reviewed Mode of arrival: ambulatory Limitations: no limitations History of Present Illness HPI narrative: Patient presents today complaining of an insect bite to the left upper arm. Patient was bit by an unknown insect 3 days ago in his garage and came in to have it evaluated to make sure he did not need antibiotics. He has been applying prescription steroid cream (halobetasol) that he uses for his psoriasis that has been helping slightly. He reports itching but no pain. Denies any additional symptoms. Related Data Home Medications ?Medication ?Instructions ?Recorded ?Confirmed ?Last Taken ?Type insulin lispro 100 unit/mL 80 ml subcut DIRECTED 02/25/22 12/08/23 Unknown History subcutaneous solution (Humalog U-100 Insulin) levothyroxine 200 mcg tablet 200 tablet PO DAILY 02/25/22 12/08/23 Unknown History (Euthyrox) blood-glucose sensor (Dexcom G6 11/23/23 11/23/23 Unknown History Sensor device) secukinumab 150 mg/mL subcutaneous 150 mg subcut [id number] 11/23/23 12/08/23 Unknown History pen injector (Cosentyx Pen 300 mg/2 pens () Allergies Allergy/AdvReac Type Severity Reaction Status Date / Time erythromycin base AdvReac Nausea and Verified 03/09/25 08:20 Vomiting Review of Systems Review of Systems: CONSTITUTIONAL: Denies body aches, fever, chills, or sweats. EYES: Denies visual changes, redness, or discharge. ENT: Denies rhinorrhea, congestion, sore throat, or otalgia. CARDIOVASCULAR: Denies chest pain, palpitations, or edema. RESPIRATORY: Denies cough or dyspnea. GASTROINTESTINAL: Denies abdominal pain, nausea, vomiting, or diarrhea. GENITOURINARY: Denies dysuria or hematuria. SKIN: Denies rash, or wounds.+ insect bite MUSCULOSKELETAL: Denies back pain, joint pain, or myalgia. NEUROLOGIC: Denies headache, numbness, tingling, or weakness. PSYCH: Denies depression or anxiety. PMFSH Comments At time of signature, I have reviewed and agree with nursing past medical, surgical, social and family history unless otherwise noted. Please see nursing chart for further information. There is no relevant family history pertinent to the presenting complaint Exam Narrative: GENERAL: Well-appearing, well-nourished, and in no acute distress. HEAD: Normocephalic, atraumatic. EYES: EOMI. No redness or drainage. Conjunctivae normal. ENT: Mucous membranes pink and moist. NECK: Normal AROM. CHEST: No respiratory distress. EXTREMITIES: Left upper arm: 1 cm round area of erythema and slight induration with surrounding area in total measuring 5 x 4 area of erythema without induration. No edema, tenderness, fluctuance, or drainage. Consistent with insect bite. SKIN: Warm, dry, no rash. Capillary refill normal. Normal skin turgor. NEURO: No focal deficits. Alert and oriented x3. Gait steady. PSYCH: Normal affect. No signs of depression or anxiety. Course Course Level of Care: Express Care Visit Vital Signs Vital signs: Vital Signs Temperature 97.3 F L 03/09/25 08:16 Pulse Rate 71 03/09/25 08:16 Respiratory Rate 16 03/09/25 08:16 Blood Pressure 98/76 L 03/09/25 08:16 Pulse Oximetry 97 03/09/25 08:16 Oxygen Delivery Room Air 03/09/25 08:16 Temperature 97.3 F L 03/09/25 08:16 Pulse Rate 71 03/09/25 08:16 Respiratory Rate 16 03/09/25 08:16 Blood Pressure 98/76 L 03/09/25 08:16 Pulse Oximetry 97 03/09/25 08:16 Oxygen Delivery Room Air 03/09/25 08:16 Reviewed MDM - Skin/Abscess/Foreign Bdy MDM Narrative Medical decision making narrative: Area of concern is consistent allergic reaction to insect bite. No signs of cellulitis bacterial infection noted. Patient will continue to use topical steroid at home for symptoms and recommend starting an oral antihistamine for itching. Will continue to monitor for signs of infection. Patient agrees with plan. Anticipatory guidance given. Differential Diagnosis Differential diagnosis: Likely abscess of skin or subcutaneous tissue, urticaria, cellulitis, insect bites and contact dermatitis Critical Care Time Critical Care Time Critical Care Time: No Discharge Plan Discharge Clinical Impression: Allergic reaction to insect bite Patient Disposition: Home Condition: Stable Instructions: Insect Bite or Sting (ED) Additional Instructions: The bump on your arm is likely an allergic reaction to an insect bite. Continue your topical steroid and taking oral antihistamine for itching such as Zyrtec, Claritin, or Angie. Continue to monitor for signs of infection such as increased redness, swelling, development of pain, or red streaking up your arm, and see your doctor if you note any. Patient Language: [place] Prescriptions: No Action levothyroxine [Euthyrox] 200 mcg tablet 200 tablet PO DAILY insulin lispro [Humalog U-100 Insulin] 100 unit/mL solution 80 ml subcut DIRECTED (DME) Dexcom G6 Sensor Device MISCELLANEOUS Cosentyx Pen (2 Pens) 150 mg/mL pen injector 150 mg SUBCUT [id number] Follow-up/Referrals: PHYSICIAN,LEAD DIE MOLDER [Primary Care Provider] - Time of Disposition: 08:36
== END 2025-03-09 08:41 | disposition home or self-care (01) ==
PROVIDERS: Emergency Provider Nurse Practitioner
DX: S40.862A Insect bite (nonvenomous) of left upper arm, initial encounter (principal); W57.XXXA Bitten or stung by nonvenomous insect and other nonvenomous arthropods, initial encounter; E11.9 Type 2 diabetes mellitus without complications; Z79.4 Long term (current) use of insulin; L40.9 Psoriasis, unspecified; E03.9 Hypothyroidism, unspecified; L40.50 Arthropathic psoriasis, unspecified; K21.9 Gastro-esophageal reflux disease without esophagitis
CPT/HCPCS: 99211; G0463

== ENCOUNTER 2025-08-21 10:22 | Emergency (ER) | payer OTHER, SELFPAY ==
--- NOTE | 2025-08-21 10:38 | ED.URI ---
HPI - URI/Sore Throat General Chief Complaint: Upper Respiratory Infection Stated Complaint: sorethroat, cough Time Seen by Provider: 08/21/25 10:29 Source: patient Mode of arrival: ambulatory Limitations: no limitations History of Present Illness HPI Narrative: patient is a 45-year-old male who presents with 6 days worsening sore throat, congestion, drainage and productive cough. Denies any fever, chills, nausea vomiting, diarrhea. Patient is on prednisone for psoriatic arthritis and states that normally makes him feel better. Related Data Home Medications ?Medication ?Instructions ?Recorded ?Confirmed ?Last Taken ?Type insulin lispro 100 unit/mL 80 ml subcut DIRECTED 02/25/22 12/08/23 Unknown History subcutaneous solution (Humalog U-100 Insulin) levothyroxine 200 mcg tablet 200 tablet PO DAILY 02/25/22 12/08/23 Unknown History (Euthyrox) blood-glucose sensor (Dexcom G6 11/23/23 11/23/23 Unknown History Sensor device) secukinumab 150 mg/mL subcutaneous 150 mg subcut [id number] 11/23/23 12/08/23 Unknown History pen injector (Cosentyx Pen 300 mg/2 pens () halobetasol propionate 0.05 % topical 08/21/25 Unknown History topical ointment prednisone 5 mg tablet mg 08/21/25 Unknown History Allergies Allergy/AdvReac Type Severity Reaction Status Date / Time erythromycin base AdvReac Nausea and Verified 08/21/25 10:45 Vomiting Review of Systems Review of Systems: All systems reviewed & are unremarkable except as noted in HPI and below Constitutional: Constitutional: Denies chills, Denies fatigue, Denies fever(s), Denies headache(s), Denies malaise and Denies weakness Eyes: Eyes: Denies blurry vision, Denies itchy eyes and Denies loss of vision ENT: Denies otalgia, Denies headache(s), Reports nasal congestion, Reports post nasal drip, Denies sinus pain and Reports sore throat Cardiovascular: Cardiovascular: Denies chest pain, Denies irregular heart rhythm and Denies dyspnea Respiratory: Respiratory: Reports cough and Denies dyspnea Gastrointestinal: Gastrointestinal: Denies abdominal pain, Denies diarrhea, Denies nausea and Denies vomiting Musculoskeletal: Musculoskeletal: Denies back pain, Denies myalgias and Denies arthralgias Integumentary/Breasts: Skin/Breast: Denies pruritus and Denies rash Neurologic: Denies headache(s), Denies loss of vision and Denies weakness Psychiatric: Psychiatric: Reports no additional psychiatric complaints Endocrine: Endocrine: Denies fatigue Allergic/Immunologic: Allergic/Immunologic: Denies itchy eyes PMFSH Comments At time of signature, agree with nursing past medical, surgical, social and family history. There is no relevant family history pertinent to the presenting complaint. Exam Const: General: cooperative, healthy appearing, comfortable, no acute distress and well nourished Nutritional Appearance: well nourished Orientation/consciousness: patient oriented x3 Limitations: no limitations HENMT: Head: normal to inspection, normocephalic and atraumatic Ears: hearing grossly normal bilaterally, external ears normal, TM's normal bilaterally, EAC's normal and no periauricular adenopathy Face/Nose/Sinus: Normal external nose present, Abnormal mucous membranes and turbinates present erythematous bilateral and diffuse, normal facial exam, sinuses nontender and face symmetric Face and sinus: normal facial exam, sinuses nontender and face symmetric Mouth: Yes Normal oral and palatal mucosa present, Yes lip normal, Yes tongue normal, Yes Normal salivary glands and ducts present, Yes oropharynx normal and Yes moist mucous membranes Teeth and gingiva: dentition normal Throat: uvula midline, abnormal tonsil bilateral erythema and hypertrophy 4+ and posterior oropharynx abnormal erythema Eyes: General: appearance normal, both eyes and all related structures Alignment and Position: alignment normal and position normal Periorbital: periorbital findings normal Eyelids: eyelids normal Pupils: Equal, round and reactive pupils present Neck: Neck: normal visual inspection, full ROM, no lymphadenopathy and supple Chest: Chest palpation & inspection: normal inspection of the chest and normal palpation of entire chest wall Resp: Effort & Inspection: normal respiratory effort and able to speak in complete sentences Auscultation: clear to auscultation bilaterally, no crackles, no rales, no rhonchi and no wheezes Cardio: Rate: regular rate Rhythm: regular rhythm Heart sounds: S1 normal heart sound present and S2 normal heart sound present GI: Inspection: normal to inspection Skin: General skin exam: normal color and no rashes or lesions noted Neuro: General: patient oriented x3 and moves all extremities Cranial nerves: Yes Equal, round and reactive pupils present Speech: normal speech Gait exam (Neuro): Normal gait present Extrem: General: normal to inspection, full ROM and no edema Psych: Appearance: grossly normal and well kempt Mental Status: mental status grossly normal Speech and movement: Normal speech and movement present Affect: normal affect Attitude: cooperative Thought process: Normal thought process present Course Course Emergency Course: Discharge instructions reviewed with patient, as well as provided in writing per nursing staff. The instructions also include specific and strict return/GO TO THE ER as well as f/u information. All questions have been answered, and the patient deny any further questions with discharge and discharge plan. Portions of this record may have been created with voice recognition software Level of Care: Express Care Visit Vital Signs Vital signs: Reviewed MDM - URI/Sore Throat MDM Narrative Medical decision making narrative: Pt well hydrated appearing, in no respiratory distress, hemodynamically stable. Recommend supportive care. The patient is stable at time of discharge the clinical impression was discussed and the patient was given the opportunity to ask questions, which were addressed as completely as possible given the information available at present. Anticipatory guidance and return to care precautions were discussed and the importance of primary care follow-up was stressed and encouraged. The patient voiced understanding of the plan, indications to return, and the need for follow-up. Exam findings show no acute concerns or changes Patient is appropriate for outpatient treatment and follow-up. Differential diagnosis considered: Wright virus, strep pharyngitis, allergic rhinitis, upper respiratory tract infection, sinusitis, rhinosinusitis, nasopharyngitis. viral pharyngitis, otitis media, otitis externa, otitis effusion, foreign body, cerumen impaction, viral syndrome, and influenza.? Medical Records Attestation: I reviewed the patient's medical records. Lab Data Attestation: I reviewed the patient's lab results. Discharge Plan Discharge Clinical Impression: Acute bacterial tonsillitis Patient Disposition: Home Condition: Stable Instructions: Tonsillitis (ED) Additional Instructions: After 24 hours on antibiotics throw tooth brush away and start using a new one. Wash your sheets and cup/water bottle that is used daily. Do not share drinks. Take Motrin alternating with Tylenol for pain and fever alternating every 3 hours. 8 AM: Tylenol 11 AM: Ibuprofen 2 PM: Tylenol 5 PM: Ibuprofen 8 PM: Tylenol 11 PM: Ibuprofen 2 AM: Tylenol 5 AM: Ibuprofen Increase fluids, avoid caffeine. Other symptomatic treatments include: -Antihistamine medication such as Benadryl at night and Zyrtec/Claritin/Angie during the day can help improve symptoms. -Use Flonase twice a day for 5 days then daily to help reduce the inflammation and dry up your sinuses. -You can also use Sudafed or Mucinex. Be sure to drink plenty of water with these medications at least 8 ounces with every dose and it is important to drink 8 to 10 glasses of water per day. Water is a natural decongestant -Eat and drink things that are easy to swallow, like tea or soup, or popsicles. -Oral rinses such as: Salt water gargles and/or may use topical anesthetic (eg. Chloraseptic spray) or lozenges to relieve dryness or throat pain). -Frequent hand washing or hand psychologists is one of the best ways to prevent spread of infection. -Using a vaporizer or humidifier at night will also help thin secretions and help with coughing up phlegm. -Follow up with primary care provider in 3-5 days if condition is not improving - For new or worsening symptoms go directly to the nearest ER Patient Language: [place] Prescriptions: New amoxicillin 500 mg capsule 500 mg PO BID 10 Days Qty: 20 0RF No Action levothyroxine [Euthyrox] 200 mcg tablet 200 tablet PO DAILY insulin lispro [Humalog U-100 Insulin] 100 unit/mL solution 80 ml subcut DIRECTED (DME) Dexcom G6 Sensor Device MISCELLANEOUS Cosentyx Pen (2 Pens) 150 mg/mL pen injector 150 mg SUBCUT [id number] prednisone 5 mg tablet halobetasol propionate 0.05 % ointment TOPICAL Follow-up/Referrals: Garcia Sanchez MD [Physician, Family Practice] - 3 Days Time of Disposition: 11:07
[2025-08-21 10:44] VITALS: BP 117/62; PULSE 101; RESP 20; TEMP 36.4; O2SAT 99
[2025-08-21 10:52] LABS: EDSTREPNEGPOS1 Negative (Negative)
== END 2025-08-21 11:12 | disposition home or self-care (01) ==
PROVIDERS: Emergency Provider Nurse Practitioner Family
DX: J03.90 Acute tonsillitis, unspecified (principal); E11.9 Type 2 diabetes mellitus without complications; Z79.4 Long term (current) use of insulin; E03.9 Hypothyroidism, unspecified; K21.9 Gastro-esophageal reflux disease without esophagitis; L40.9 Psoriasis, unspecified; L40.50 Arthropathic psoriasis, unspecified
CPT/HCPCS: 87880; 99213; G0463